=== PATIENT | female | born 1955 | race Caucasian/White ===

== ENCOUNTER 2020-02-17 12:05 | Emergency (ER) | payer MEDICARE, MEDICAID ==
[~2020-02-17] VITALS: Ht 165.1 cm; Wt 90.7 kg
[2020-02-17 12:24] VITALS: BP 136/65
[2020-02-17] MEDS ORDERED: MORPHINE SULFATE IM STA (12:28)
[2020-02-17] MEDS ORDERED: ZOFRAN ODT SL STA (12:28)
[2020-02-17] MEDS ORDERED: TORADOL IM STA (12:28)
--- NOTE | 2020-02-17 12:28 | NUR ---
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
[2020-02-17] MEDS ORDERED: TORADOL ONE (12:32)
[2020-02-17] MEDS ORDERED: ZOFRAN ODT ONE (12:32)
[2020-02-17] MEDS ORDERED: MORPHINE SULFATE ONE (12:34)
--- NOTE | 2020-02-17 12:34 | ER.PDOC ---
General Chief Complaint: Neck/Upper back Pain Stated Complaint: HEAD/NECK PAIN Time seen by MD: 12:33 Source: patient Exam Limitations: no limitations History of Present Illness Timing/Duration: this morning Severity/Quality: moderate Radiation: other Method of Injury: other Modifying Factors: improves with immobilization, improves with movement, improves with pain medication, improves with rest Associated Symptoms: muscle spasms, tingling in legs/feet Prior symptoms/Treatment: Similar symptoms previous Allergies: Coded Allergies: Penicillins (Verified Allergy, Unknown, UNKNOWN, 02/17/20) Sulfa (Sulfonamide Antibiotics) (Verified Allergy, Unknown, UNKNOWN, 02/17/20) Past Medical History Medical History: cardiac problems, diabetes, high cholesterol, hypertension Surgical History: hysterectomy, shoulder LMP (females 10-50): postmenopause Social History Alcohol Use: none Drug Use: none Reviewed Nursing Reviewed: Vital Signs, Abn. Noted Review of Systems All Other Systems: Reviewed and Negative Physical Exam General Appearance: No Apparent Distress, WD/WN Neck: Nexus criteria neg, Limited Range of Motion, Muscle Spasm, Painful Range of Motion, Paraspinous Muscle Tender, Stiff Neck, Tender Lateral Cardiovascular/Respiratory: Regular Rate, Rhythm, No M/R/G, Normal Peripheral Pulses, No JVD, Normal Breath Sounds, No Respiratory Distress Back: Normal Inspection, No CVA Tenderness, No Vertebral Tenderness 1 - pain 2 - radiation Extremities: No Evidence of Injury, Normal Range of Motion, Non-Tender, No Pedal Edema, Pelvis Stable Neuro/Psych: Alert, fiscal services manager nml/symmetrical, mood/effect nml, No Motor/Sensory Deficits, Relexes nml Skin: Normal Color, Warm/Dry Results/Orders Results/Orders Orders - JERONIMO FUENTES MD Ketorolac Tromethamine (Toradol) (02/17/20 12:28) Morphine Sulfate (Morphine Sulfate) (02/17/20 12:28) Ondansetron (Zofran Odt) (02/17/20 12:28) Ct Cervical Spine (02/17/20 12:30) Ketorolac Tromethamine (Toradol) (02/17/20 12:32) Hydromorphone Hcl (Dilaudid) (02/17/20 13:29) Prednisone (Prednisone) (02/17/20 13:29) Ct Head Wo Contrast (02/17/20 13:29) Hydromorphone Hcl (Dilaudid) (02/17/20 13:33) Vital Signs Date Time Temp Pulse Resp B/P (MAP) Pulse Ox O2 Delivery O2 Flow Rate FiO2 02/17/20 13:28 97.6 75 18 144/72 (96) 95 Room Air 02/17/20 12:24 97.6 76 18 02/17/20 12:24 97.6 76 18 95 02/17/20 12:24 97.6 76 18 136/65 (88) 95 Room Air Administered Medications Medications (Trade) Dose Ordered Sig/Lul Route PRN Reason Start Time Stop Time Status Last Admin Dose Admin Hydromorphone HCl (Dilaudid) 1 mg STAT STAT IM 02/17/20 13:33 02/17/20 13:34 UNV 02/17/20 13:42 1 MG Ketorolac Tromethamine (Toradol) 30 mg STAT STAT IM 02/17/20 12:28 02/17/20 12:29 UNV 02/17/20 12:40 30 MG Morphine Sulfate (Morphine Sulfate) 4 mg STAT STAT IM 02/17/20 12:28 02/17/20 12:29 UNV 02/17/20 12:40 4 MG Ondansetron HCl (Zofran Odt) 4 mg STAT STAT SL 02/17/20 12:28 02/17/20 12:29 UNV 02/17/20 12:40 4 MG Prednisone (Prednisone) 40 mg STAT STAT PO 02/17/20 13:29 02/17/20 13:30 UNV 02/17/20 13:42 40 MG ER DEPART Departure Time of Disposition: 14:00 Disposition: 01 HOME, SELF-CARE Impression: Primary Impression: Cervical radiculopathy Condition: Improved Referrals: MIKE BOSE (PCP) PRIMARY CARE PROVIDER Duration or Time Spent with Pa: JERONIMO Zavala MD Feb 17, 2020 12:34
--- NOTE | 2020-02-17 13:15 | DIREP ---
PROCEDURE: CT SPINE CERVICAL W/O COMPARISON:None. INDICATIONS:cervcal radiculopathy FINDINGS: ALIGNMENT:Mild straightening of the normal cervical lordosis. 2 mm anterolisthesis of C4 on C5 and C5 on C6. VERTEBRAE:Normal vertebral body height. Mild diffuse anterior osteophyte formation. PARASPINAL AREA:A calcification is seen within the right thyroid lobe. OTHER:No additional findings. CERVICAL DISC LEVELS C2-C3:Severe right and mild left facet arthrosis. Moderate right neural foraminal narrowing. C3-C4:Moderate bilateral facet arthrosis. Mild right neural foraminal narrowing. C4-C5:Moderate left greater than right facet arthrosis. No neural foraminal narrowing. C5-C6:Mild bilateral facet arthrosis. Small broad-based posterior disc protrusion. Mild bilateral neural foramina. C6-C7:Mild facet arthrosis. C7-T1:Normal. CONCLUSION:Mild degenerative and discogenic changes, with multilevel neural foraminal narrowing as above. Dictated by: Maris Watts M.D. on 02/17/2020 at 01:05 PM
[2020-02-17 13:28] VITALS: BP 144/72
[2020-02-17] MEDS ORDERED: DILAUDID IM STA ×2 (13:29→13:33)
[2020-02-17] MEDS ORDERED: PREDNISONE PO STA (13:29)
[2020-02-17] MEDS ORDERED: DILAUDID ONE (13:35)
[2020-02-17] MEDS ORDERED: PREDNISONE ONE (13:35)
--- NOTE | 2020-02-17 14:18 | DIREP ---
PROCEDURE:CT HEAD OR BRAIN W/O CONTRAST COMPARISON:None. INDICATIONS:headache TECHNIQUE:CT images were created without intravenous contrast. FINDINGS: VENTRICLES:The ventricles are normal in size and configuration. CEREBRUM:Normal cerebral morphology with appropriate martinez white matter differentiation. CEREBELLUM:Negative. BRAINSTEM:Negative. BASAL CISTERNS:Negative. HEMORRHAGE:No MASS LESION:No ACUTE INFARCT:No SKULL:Normal. SINUSES:Normal. OTHER:None CONCLUSION: 1. Normal examination. Dictated by: Efe Reynolds MD on 02/17/2020 at 02:12 PM
== END 2020-02-17 15:13 | disposition home or self-care (01) ==
LOC: ER 12:05
DX: M54.12 Radiculopathy, cervical region (principal); E11.9 Type 2 diabetes mellitus without complications; E78.00 Pure hypercholesterolemia, unspecified; I10 Essential (primary) hypertension; Z79.1 Long term (current) use of non-steroidal anti-inflammatories (NSAID); Z88.0 Allergy status to penicillin; Z79.899 Other long term (current) drug therapy; Z88.2 Allergy status to sulfonamides; Z90.710 Acquired absence of both cervix and uterus
CPT/HCPCS: 70450; 72125; 96372; 99285; J1170; J1885; J2270; J7512

== ENCOUNTER 2024-03-31 16:39 | Emergency (ER) | payer MEDICARE, MEDICAID ==
[~2024-03-31] VITALS: Ht 165.1 cm; Wt 108.9 kg
[2024-03-31 16:39] VITALS: BP 162/91; PULSE 108; RESP 18; TEMP 99.3; O2SAT 94
[2024-03-31 17:37] VITALS: BP 199/82; PULSE 94; RESP 18; TEMP 99.3; O2SAT 94
[2024-03-31] MEDS ORDERED: LIDODERM TP ONE (18:04)
[2024-03-31] MEDS ORDERED: TORADOL ONE (18:04)
[2024-03-31] MEDS ORDERED: ROBAXIN PO ONE (18:04)
[2024-03-31] MEDS: ROBAXIN PO STA (18:08)
[2024-03-31] MEDS: LIDODERM TP STA (18:08)
[2024-03-31] MEDS: TORADOL IM STA (18:08)
[2024-03-31] MEDS ORDERED: KETO10TA PO (18:35)
[2024-03-31] MEDS ORDERED: LIDO700A19 TP (18:35)
[2024-03-31] MEDS ORDERED: METH-621 PO (18:35)
[2024-03-31 18:37] VITALS: BP 178/77; PULSE 90; RESP 18; TEMP 99.3; O2SAT 94
== END 2024-03-31 18:41 | disposition home or self-care (01) ==
LOC: ER 16:39
DX: M62.830 Muscle spasm of back (principal); E78.00 Pure hypercholesterolemia, unspecified; I10 Essential (primary) hypertension; Z90.49 Acquired absence of other specified parts of digestive tract; Z90.710 Acquired absence of both cervix and uterus; Z88.0 Allergy status to penicillin; Z88.2 Allergy status to sulfonamides
CPT/HCPCS: 99285; 70450; 96372; 72125; J1885